=== PATIENT | female | born 2000 | race Caucasian/White ===

== ENCOUNTER 2018-10-11 18:32 | Emergency (ER) | payer OTHER ==
--- NOTE | 2018-10-11 19:19 | NUR ---
LATE ENTRY FOR 19:19. FIRST CONTACT WITH PT. PT C/O INTERMITTENT RIGHT UPPER QUADRANT ABD PAIN X 1WEEK. PT STATES "I HAVE ABD PAIN ALL DAY TODAY." PAIN LEVEL 6/10 AT THIS TIME. PT DENIES N/D/V/FEVER. BP, SPO2 MONITORS IN PLACE. CALL LIGHT WITHIN REACH. PT AOX4. RESPS EVEN AND UNLABORED.
[2018-10-11 19:21] LABS: MICROSCOPIC AUTO
[2018-10-11] MEDS ORDERED: MORPHINE SULFATE 4 MG/ML, 1ML IVPush PRN (19:30)
[2018-10-11] MEDS ORDERED: SODIUM CHLORIDE FLUSH 10ML SYR IVF ONE (19:30)
[2018-10-11] MEDS ORDERED: MORPHINE SULFATE 4 MG/ML, 1ML ONE (19:44)
[2018-10-11 19:53] LABS: BASOPHILS # (AUTO) 0.04 x10^3/uL (0-0.3); BASOPHILS % (AUTO) 0 % (0-1); EOSINOPHILS # (AUTO) 0.11 x10^3/uL (0-0.8); EOSINOPHILS % (AUTO) 1 % (1-7); LYMPHOCYTES # (AUTO) 3.08 x10^3/uL (1-6.1); LYMPHOCYTES % (AUTO) 31 % (22-44); MD NO; MEAN CORPUSCULAR HEMOGLOBIN 30.9 pg (27.0-34.8); MEAN CORPUSCULAR HGB CONC 34.2 g/dL (32.4-35.8); MEAN CORPUSCULAR VOLUME 90.3 fL (80-100); MEAN PLATELET VOLUME 7.9 fL (7.4-10.4); MONOCYTES # (AUTO) 0.76 x10^3/uL (0-1.4); MONOCYTES % (AUTO) 8 % (2-9); NEUTROPHILS # (AUTO) 5.87 x10^3/uL (1.8-8.0); NEUTROPHILS % (AUTO) 60 % (42-75); PLATELET COUNT 366 x10^3/uL (130-400); RED BLOOD COUNT 4.61 x10^6/uL (3.82-5.3); RED CELL DISTRIBUTION WIDTH 12.6 % (9.6-15.2)
[2018-10-11 20:01] LABS: ALANINE AMINOTRANSFERASE 39 U/L (12-78); ALBUMIN 3.8 g/dL (3.4-5.0); ANION GAP 5 mmol/L (5-15); CALCIUM 8.9 mg/dL (8.5-10.1); CHLORIDE 108 mmol/L (98-107); CREATININE 0.61 mg/dL (0.55-1.02)
[2018-10-11 20:04] LABS: ALKALINE PHOSPHATASE 80 U/L (45-117); BILIRUBIN,TOTAL 0.4 mg/dL (0.2-1.0); TOTAL PROTEIN 7.4 g/dL (6.4-8.2)
--- NOTE | 2018-10-11 20:04 | NUR ---
TASK RN: PIV STARTED, PT MEDICATED PER NOV. PT TO IMAGING, WITH TECH, [employer]IA [employer].
--- NOTE | 2018-10-11 20:35 | NUR ---
PT PAIN LEVEL REDUCES A LITTLE BIT. IT IS 5/10. PT DECLINES PAIN MED AT THIS TIME.
--- NOTE | 2018-10-11 21:20 | NUR ---
ALL RESULTS BACK. AWAITING DC AT THIS TIME.
[2018-10-11 21:34] VITALS: BP 115/84
== END 2018-10-11 21:36 | disposition home or self-care (01) ==
LOC: ED 21:30
DX: R10.11 Right upper quadrant pain (principal)
CPT/HCPCS: 36415; 76700; 80053; 81001; 83690; 84703; 85025; 96374